=== PATIENT | female | born 1965 | race Caucasian/White ===

== ENCOUNTER 2022-04-25 11:07 | Observation (INO) ==
[2022-04-25] MEDS ORDERED: Iopamidol - 370 500 ML MLS IVP ONE (12:07)
[2022-04-25 12:35] LABS: Basophils % 0.1 %; Eosinophils # 0.1 K/mcL (0.0-0.6); Eosinophils % 1.4 %; Hemoglobin 15.7 g/dL (11.5-15.4); Immature Granulocytes % 0.3 % (0-4); Lymphocytes # 2.1 K/mcL (0.6-4.6); Lymphocytes % 28.6 %; Mean Corpuscular HGB Conc 33.4 g/dL (31.6-35.5); Mean Corpuscular Hemoglobin 31.9 pg (28.0-33.3); Mean Corpuscular Volume 95.5 fL (83.0-100.0); Mean Platelet Volume 9.6 fL (9.4-12.4); Monocytes # 0.4 K/mcL (0.0-1.3); Monocytes % 5.7 %; Neutrophils # 4.7 K/mcL (1.6-8.9); Platelet Count 238 K/mcL (140-400); Red Blood Count 4.92 M/mcL (3.82-4.97); Red Cell Distribution Width 12.5 % (11.5-14.5); Segmented Neutrophils % 63.9 %; White Blood Count 7.4 K/mcL (4.3-11.1)
[2022-04-25 13:01] LABS: Bilirubin,Urine Negative (Negative); Blood,Urine Negative (Negative); Clarity,Urine Clear (Clear); Color,Urine Colorless (Yellow); Glucose,Urine (UA) >=1000 mg/dL (Normal); Hyaline Casts,Urine Few per lpf (None Seen); Ketones,Urine Negative (Negative); Leukocyte Esterase,Urine Negative (Negative); Mucus,Urine Few per lpf (None-Few); Nitrite,Urine Negative (Negative); Protein,Urine Negative (Neg-Trace); RBC,Urine 0-3 per hpf (0-3); Specific Gravity,Urine 1.014 (1.010-1.025); Squamous Epithelial Cell,Urine Few per hpf (None-Few); Urobilinogen,Urine Normal (Normal)
[2022-04-25 13:03] LABS: INR 1.1
[2022-04-25 14:46] LABS: Alanine Aminotransferase 17 Units/L (7-52); Albumin 4.3 g/dL (3.5-5.7); Albumin/Globulin Ratio 1.5 (1.1-2.2); Alkaline Phosphatase 71 Units/L (34-104); Aspartate Amino Transferase 16 Units/L (13-39); BUN/Creatinine Ratio 24 (6-26); Bilirubin,Indirect 0.3 mg/dL (0.0-1.0); Bilirubin,Total 0.3 mg/dL (0.3-1.0); Blood Urea Nitrogen 20 mg/dL (6-20); Calcium 9.6 mg/dL (8.6-10.3); Carbon Dioxide 25 mEq/L (23-29); Chloride 105 mEq/L (98-107); Globulin 2.8 g/dL (2.4-3.5); Glucose 60 mg/dL (70-105); Lipase 30 Units/L (11-82); Osmolality,Calculated 290 (280-300); Potassium 3.7 mEq/L (3.5-5.1); Sodium 140 mEq/L (136-145); Total Protein 7.1 g/dL (6.4-8.9); Troponin I < 0.03 ng/mL (< 0.04)
[2022-04-25] MEDS ORDERED: Morphine Sulfate 2 MG/ML SYRINGE IVP ONE (15:55)
[2022-04-25] MEDS ORDERED: 0.9 % Sodium Chloride 1,000 ML IVC ONE (16:02)
[2022-04-25] MEDS ORDERED: methocarbamoL 750 MG TABLET PO ONE (16:18)
[2022-04-25] MEDS ORDERED: Dextrose Gel 15 GM/37.5 ML TUBE PO PRN ×2 (17:32)
[2022-04-25] MEDS ORDERED: D5% in Water 1,000 ML IVC PRN (17:32)
[2022-04-25] MEDS ORDERED: Ondansetron ODT 4 MG TAB.RAPDIS SL PRN (17:32)
[2022-04-25] MEDS ORDERED: Naloxone 0.4 MG/ML INJ IVP PRN (17:32)
[2022-04-25] MEDS ORDERED: *HR* Dextrose 50 % in Water (Syg) 50 ML SYRINGE IVP PRN (17:32)
[2022-04-25] MEDS: Insulin LISPRO 300 UNITS/3 ML VIAL SUBQ SCH (20:05)
[2022-04-26] MEDS: Insulin LISPRO 300 UNITS/3 ML VIAL SUBQ SCH ×4 (08:24→20:38)
[2022-04-26] MEDS: ARIPiprazole 5 MG TABLET PO SCH (08:29)
[2022-04-26 10:46] LABS: Basophils % 0.3 %; Eosinophils # 0.1 K/mcL (0.0-0.6); Eosinophils % 1.2 %; Immature Granulocytes % 0.1 % (0-4); Lymphocytes # 1.7 K/mcL (0.6-4.6); Lymphocytes % 22.8 %; Mean Corpuscular HGB Conc 33.6 g/dL (31.6-35.5); Mean Corpuscular Volume 95.5 fL (83.0-100.0); Mean Platelet Volume 9.6 fL (9.4-12.4); Monocytes # 0.3 K/mcL (0.0-1.3); Monocytes % 4.3 %; Neutrophils # 5.4 K/mcL (1.6-8.9); Platelet Count 230 K/mcL (140-400); Red Cell Distribution Width 12.4 % (11.5-14.5); Segmented Neutrophils % 71.3 %; White Blood Count 7.6 K/mcL (4.3-11.1)
[2022-04-26 10:53] LABS: Hemoglobin 14.1 g/dL (11.5-15.4)
[2022-04-26 11:32] LABS: Alanine Aminotransferase 16 Units/L (7-52); Albumin/Globulin Ratio 1.4 (1.1-2.2); Alkaline Phosphatase 70 Units/L (34-104); Aspartate Amino Transferase 17 Units/L (13-39); BUN/Creatinine Ratio 21 (6-26); Bilirubin,Total 0.3 mg/dL (0.3-1.0); Blood Urea Nitrogen 15 mg/dL (6-20); Calcium 9.2 mg/dL (8.6-10.3); Carbon Dioxide 27 mEq/L (23-29); Chloride 105 mEq/L (98-107); Globulin 2.8 g/dL (2.4-3.5); Glucose 151 mg/dL (70-105); Osmolality,Calculated 286 (280-300); Potassium 3.6 mEq/L (3.5-5.1); Sodium 136 mEq/L (136-145); Total Protein 6.8 g/dL (6.4-8.9)
[2022-04-26] MEDS: calcium polycarbophiL 625 MG TABLET PO SCH (20:38)
[2022-04-26] MEDS: Hydrocortisone Acetate 25 MG RECTAL SUPPOSITORY RC SCH (20:38)
[2022-04-27 02:13] LABS: BUN/Creatinine Ratio 21 (6-26); Blood Urea Nitrogen 12 mg/dL (6-20); Calcium 9.2 mg/dL (8.6-10.3); Carbon Dioxide 23 mEq/L (23-29); Chloride 106 mEq/L (98-107); Glucose 115 mg/dL (70-105); Osmolality,Calculated 283 (280-300); Potassium 3.6 mEq/L (3.5-5.1); Sodium 136 mEq/L (136-145)
[2022-04-27 02:31] LABS: Estimated Average Glucose 105 mg/dl; Hemoglobin A1C 5.3 %
[2022-04-27] MEDS: Insulin LISPRO 300 UNITS/3 ML VIAL SUBQ SCH ×3 (09:25→16:31)
[2022-04-27] MEDS: ARIPiprazole 5 MG TABLET PO SCH (09:44)
[2022-04-27] MEDS: Hydrocortisone Acetate 25 MG RECTAL SUPPOSITORY RC SCH (09:45)
[2022-04-27] MEDS: calcium polycarbophiL 625 MG TABLET PO SCH (09:45)
[2022-04-27 10:46] VITALS: BP 118/72; PULSE 87; TEMP 99.6; O2SAT 95
== END 2022-04-27 19:15 | disposition home or self-care (01) ==
LOC: EMEROOARM 11:07 → 3BNU 11:07 → SUATTDRO 16:55 → 3BNU 17:30
PROVIDERS: ADMIT Internal Medicine; ATTEND Family Medicine